=== PATIENT | male | born 1940 ===

== ENCOUNTER 2021-05-10 15:15 | Inpatient (IN) | payer OTHER ==
[~2021-05-10] VITALS: Ht 177.8 cm; Wt 81.8 kg
[2021-05-10] MEDS ORDERED: HYDROcodone-ACET 5/325MG TAB PO ONE (22:45)
[2021-05-10 22:57] LABS: Basophils # (auto) 0.1 10 ^3/uL (0-0.2); Eosinophils # (auto) 0.1 10 ^3/uL (0-0.8); Hematocrit 35.1 % (41.0-53.0); Red Blood Cells 4.76 10^6/uL (4.5-5.90); Red Cell Distribution Width 15.4 % (11.8-14.3)
[2021-05-10 22:59] LABS: Basophils % (auto) 1.1 % (0.0-2.0); Eosinophils % (auto) 1.1 % (0.0-7.0); Hemoglobin 11.4 g/dL (13.5-17.5); Lymphocytes # (auto) 2.1 10 ^3/uL (0.4-5.4); Lymphocytes % (auto) 21.4 % (10.0-50.0); Mean Corpuscular Hgb Conc. 32.6 g/dL (32.0-36.0); Mean Corpuscular Volume 73.7 fL (80.0-100.0); Monocytes # (auto) 0.8 10 ^3/uL (0-1.3); Monocytes % (auto) 7.9 % (0.0-12.0); Neutrophils # (auto) 6.8 10 ^3/uL (1.6-8.6); Neutrophils % (auto) 68.5 % (37.0-80.0); White Blood Cell 9.9 10^3/uL (4.4-10.8)
[2021-05-10 23:16] LABS: Calcium 8.9 mg/dL (8.5-10.1); Potassium 4.4 mmol/L (3.5-5.1)
[2021-05-11] MEDS ORDERED: DEXTROSE (50%) 50ML SYRG IV PRN (00:30)
[2021-05-11] MEDS ORDERED: HYDROcodone-ACET 5/325MG TAB PO PRN (00:30)
[2021-05-11] MEDS ORDERED: ACETAMINOPHEN 325 MG TAB PO PRN (00:30)
[2021-05-11] MEDS ORDERED: ONDANSETRON HCL 4 MG/2 ML VIAL IV PRN (00:30)
[2021-05-11] MEDS: InsuLIN REG 1unit/0.01ml Soln (100units/ml) SC SCH ×4 (06:29→22:00)
[2021-05-11] MEDS: ACCU-CHEK COMFORT CURVE STRIP VI SCH ×4 (06:30→22:00)
[2021-05-11] MEDS: GABAPENTIN 300 MG CAP PO SCH ×2 (14:33→23:06)
[2021-05-11] MEDS ORDERED: TAMS0.4C36 PO (14:43)
[2021-05-11] MEDS ORDERED: GABA400C11 PO (14:43)
[2021-05-11] MEDS ORDERED: METF-372 PO (14:43)
[2021-05-11] MEDS ORDERED: [UNRECOGNIZED DRUG - CODE] PO (14:47)
[2021-05-11] MEDS ORDERED: ESCI-34 PO (14:47)
[2021-05-11 17:00] LABS: Mean Corpuscular Hemoglobin 23.7 pg (28.0-32.0)
[2021-05-11 17:01] LABS: Basophils # (auto) 0.1 10 ^3/uL (0-0.2); Basophils % (auto) 0.9 % (0.0-2.0); Eosinophils # (auto) 0 10 ^3/uL (0-0.8); Eosinophils % (auto) 0.5 % (0.0-7.0); Hematocrit 36.6 % (41.0-53.0); Hemoglobin 11.9 g/dL (13.5-17.5); Lymphocytes % (auto) 20.9 % (10.0-50.0); Mean Corpuscular Hgb Conc. 32.4 g/dL (32.0-36.0); Mean Corpuscular Volume 73.2 fL (80.0-100.0); Monocytes # (auto) 0.9 10 ^3/uL (0-1.3); Monocytes % (auto) 8.7 % (0.0-12.0); Neutrophils # (auto) 6.7 10 ^3/uL (1.6-8.6); White Blood Cell 9.8 10^3/uL (4.4-10.8)
[2021-05-11] MEDS: metFORMIN HYDROCHLORIDE 500 MG TAB PO SCH (19:49)
[2021-05-11] MEDS: ALPRAZolam 0.25 MG TAB PO PRN (19:49)
[2021-05-12 01:37] VITALS: BP 139/71
[2021-05-12] MEDS: ALPRAZolam 0.25 MG TAB PO PRN (02:43)
[2021-05-12 03:04] LABS: Urine Bacteria FEW /hpf (None Seen); Urine Blood Negative /uL (Negative); Urine WBC 3 /hpf (0 - 3)
[2021-05-12 05:00] VITALS: BP 125/67
[2021-05-12] MEDS: GABAPENTIN 100 MG CAP PO SCH ×3 (06:12→22:00)
[2021-05-12] MEDS: ACCU-CHEK COMFORT CURVE STRIP VI SCH ×4 (06:37→22:00)
[2021-05-12] MEDS: InsuLIN REG 1unit/0.01ml Soln (100units/ml) SC SCH ×4 (06:37→22:00)
[2021-05-12 06:40] LABS: Basophils # (auto) 0.1 10 ^3/uL (0-0.2); Eosinophils # (auto) 0.1 10 ^3/uL (0-0.8); Hemoglobin 11.6 g/dL (13.5-17.5); Monocytes # (auto) 1.3 10 ^3/uL (0-1.3)
[2021-05-12 06:45] LABS: Basophils % (auto) 0.7 % (0.0-2.0); Eosinophils % (auto) 1.1 % (0.0-7.0); Hematocrit 34.2 % (41.0-53.0); Lymphocytes # (auto) 2.5 10 ^3/uL (0.4-5.4); Lymphocytes % (auto) 20.9 % (10.0-50.0); Mean Corpuscular Hemoglobin 24.8 pg (28.0-32.0); Mean Corpuscular Hgb Conc. 33.9 g/dL (32.0-36.0); Mean Corpuscular Volume 73.2 fL (80.0-100.0); Monocytes % (auto) 11.1 % (0.0-12.0); Neutrophils # (auto) 7.8 10 ^3/uL (1.6-8.6); Neutrophils % (auto) 66.2 % (37.0-80.0); Nucleated Red Blood Cells % 0.1 %; Red Blood Cells 4.67 10^6/uL (4.5-5.90); Red Cell Distribution Width 15.4 % (11.8-14.3); White Blood Cell 11.8 10^3/uL (4.4-10.8)
[2021-05-12 06:50] LABS: INR 1.01 (0.9-1.15); Partial Thromboplastin Time 26.2 sec (23.6-33.0)
[2021-05-12 06:59] LABS: Albumin 3.4 g/dL (3.4-5.0); Calcium 8.9 mg/dL (8.5-10.1); Potassium 3.8 mmol/L (3.5-5.1)
[2021-05-12 07:04] LABS: Bilirubin, Total 0.7 mg/dL (0.2-1.0)
[2021-05-12] MEDS: metFORMIN HYDROCHLORIDE 500 MG TAB PO SCH ×2 (08:09→17:36)
[2021-05-12 09:00] VITALS: BP 127/68
[2021-05-12] MEDS: ENOXAPARIN SOD 40 MG/0.4 ML SYRINGE SC SCH (10:00)
[2021-05-12 13:00] VITALS: BP 124/65
[2021-05-12 16:36] VITALS: BP 121/72
[2021-05-12 22:00] VITALS: BP 130/57
[2021-05-13 05:00] VITALS: BP 127/71
[2021-05-13] MEDS: ACCU-CHEK COMFORT CURVE STRIP VI SCH ×4 (05:10→22:20)
[2021-05-13] MEDS: GABAPENTIN 100 MG CAP PO SCH ×3 (05:10→22:20)
[2021-05-13] MEDS: InsuLIN REG 1unit/0.01ml Soln (100units/ml) SC SCH ×4 (05:10→22:21)
[2021-05-13 09:00] VITALS: BP 122/72
[2021-05-13] MEDS: metFORMIN HYDROCHLORIDE 500 MG TAB PO SCH ×2 (10:15→17:16)
[2021-05-13] MEDS: MORPHINE SULFATE 4 MG/ML SYR/VIAL IV PRN (10:16)
[2021-05-13] MEDS: ENOXAPARIN SOD 40 MG/0.4 ML SYRINGE SC SCH (10:16)
[2021-05-13 13:00] VITALS: BP 125/67
[2021-05-13] MEDS ORDERED: PANTOPRAZOLE 40 MG TAB PO ONE (14:00)
[2021-05-13 17:00] VITALS: BP 130/74
[2021-05-13 22:00] VITALS: BP 125/68
[2021-05-14 05:00] VITALS: BP 128/68
[2021-05-14] MEDS: GABAPENTIN 100 MG CAP PO SCH ×3 (06:00→21:24)
[2021-05-14] MEDS: ACCU-CHEK COMFORT CURVE STRIP VI SCH ×4 (06:00→21:25)
[2021-05-14] MEDS: InsuLIN REG 1unit/0.01ml Soln (100units/ml) SC SCH ×4 (06:00→21:32)
[2021-05-14] MEDS: metFORMIN HYDROCHLORIDE 500 MG TAB PO SCH ×2 (08:00→18:00)
[2021-05-14 09:00] VITALS: BP 119/66
[2021-05-14] MEDS: PANTOPRAZOLE 40 MG TAB PO SCH (10:00)
[2021-05-14] MEDS: MORPHINE SULFATE 4 MG/ML SYR/VIAL IV PRN (10:59)
[2021-05-14 13:00] VITALS: BP 125/71
[2021-05-14] MEDS ORDERED: ONDANSETRON HCL 4 MG/2 ML VIAL ONE (17:10)
[2021-05-14] MEDS ORDERED: LIDOCAINE 2% (LOCAL ANESTH.) PF 5ml SDV ONE (17:10)
[2021-05-14] MEDS ORDERED: PROPOFOL 10 MG/ML 20 ML IV ONE (17:10)
[2021-05-14] MEDS ORDERED: GLYCOPYRROLATE 0.2 MG/ML 1ML VIAL ONE (17:10)
[2021-05-14] MEDS ORDERED: MIDAZOLAM HCL 2MG/2ML 2ml VIAL (1mg/ml) ONE (17:10)
[2021-05-14] MEDS ORDERED: fentaNYL CITRATE 100 MCG/2 ML VL ONE (17:10)
[2021-05-14] MEDS ORDERED: ePHEDrine SULFATE 50 MG/ML AMP ONE (17:10)
[2021-05-14] MEDS ORDERED: ceFAZolin 1GM/50ML 100 ML IV ONE (17:46)
[2021-05-14] MEDS ORDERED: EPINEPHrine HCL 1 MG/1 ML AMP ONE (17:59)
[2021-05-14] MEDS ORDERED: TRANEXAMIC ACID 0 ML ONE (17:59)
[2021-05-14] MEDS ORDERED: VANCOMYCIN HCL 1000 MG VL ONE (18:03)
[2021-05-14] MEDS ORDERED: KETAMINE HCL 10 ML ONE (18:28)
[2021-05-14] MEDS ORDERED: HYDROcodone-ACET 10/325MG TAB PO PRN (19:45)
[2021-05-14] MEDS ORDERED: ACCU-CHEK COMFORT CURVE STRIP VI ONE (20:15)
[2021-05-14] MEDS ORDERED: ONDANSETRON HCL 4 MG/2 ML VIAL IV PRN (20:15)
[2021-05-14] MEDS ORDERED: HYDROmorphone HCL 2 MG/ML VL IV PRN (20:15)
[2021-05-14 22:00] VITALS: BP 127/65
[2021-05-14] MEDS: HYDROmorphone HCL 2 MG/ML VL IV PRN (22:52)
[2021-05-15] MEDS: HYDROmorphone HCL 2 MG/ML VL IV PRN ×3 (04:35→21:48)
[2021-05-15 05:00] VITALS: BP 138/69
[2021-05-15] MEDS: GABAPENTIN 100 MG CAP PO SCH ×3 (05:54→21:47)
[2021-05-15] MEDS: ACCU-CHEK COMFORT CURVE STRIP VI SCH ×4 (06:00→21:48)
[2021-05-15] MEDS: InsuLIN REG 1unit/0.01ml Soln (100units/ml) SC SCH ×4 (06:01→22:04)
[2021-05-15 07:02] LABS: Basophils # (auto) 0.1 10 ^3/uL (0-0.2); Basophils % (auto) 0.7 % (0.0-2.0); Eosinophils # (auto) 0.2 10 ^3/uL (0-0.8); Eosinophils % (auto) 1.5 % (0.0-7.0); Hematocrit 32.3 % (41.0-53.0); Hemoglobin 10.9 g/dL (13.5-17.5); Lymphocytes # (auto) 1.5 10 ^3/uL (0.4-5.4); Lymphocytes % (auto) 14.1 % (10.0-50.0); Mean Corpuscular Hemoglobin 24.6 pg (28.0-32.0); Mean Corpuscular Hgb Conc. 33.6 g/dL (32.0-36.0); Mean Corpuscular Volume 73.1 fL (80.0-100.0); Monocytes # (auto) 1.1 10 ^3/uL (0-1.3); Monocytes % (auto) 10.3 % (0.0-12.0); Neutrophils % (auto) 73.4 % (37.0-80.0); Red Blood Cells 4.42 10^6/uL (4.5-5.90); Red Cell Distribution Width 14.7 % (11.8-14.3); White Blood Cell 10.9 10^3/uL (4.4-10.8)
[2021-05-15 07:08] LABS: BUN/Creatinine Ratio 21.2; Calcium 8.9 mg/dL (8.5-10.1)
[2021-05-15] MEDS: metFORMIN HYDROCHLORIDE 500 MG TAB PO SCH ×2 (07:53→17:56)
[2021-05-15] MEDS: ENOXAPARIN SOD 40 MG/0.4 ML SYRINGE SC SCH (07:53)
[2021-05-15] MEDS: PANTOPRAZOLE 40 MG TAB PO SCH (07:53)
[2021-05-15 09:00] VITALS: BP 136/74
[2021-05-15 16:48] VITALS: BP 126/62
[2021-05-15 22:00] VITALS: BP 128/65
[2021-05-16 05:00] VITALS: BP 117/66
[2021-05-16] MEDS: GABAPENTIN 100 MG CAP PO SCH ×2 (06:48→14:57)
[2021-05-16] MEDS: InsuLIN REG 1unit/0.01ml Soln (100units/ml) SC SCH ×2 (06:49→12:00)
[2021-05-16] MEDS: ACCU-CHEK COMFORT CURVE STRIP VI SCH ×2 (06:49→14:25)
[2021-05-16] MEDS: PANTOPRAZOLE 40 MG TAB PO SCH (08:44)
[2021-05-16] MEDS: metFORMIN HYDROCHLORIDE 500 MG TAB PO SCH (08:44)
[2021-05-16] MEDS: ENOXAPARIN SOD 40 MG/0.4 ML SYRINGE SC SCH (08:44)
[2021-05-16 09:00] VITALS: BP 133/68
[2021-05-16] MEDS: HYDROmorphone HCL 2 MG/ML VL IV PRN (10:21)
[2021-05-16 12:30] VITALS: BP 110/62
[2021-05-16 14:32] VITALS: BP 110/62
== END 2021-05-16 15:34 | disposition home health service (06) | DRG 517 ==
LOC: ER 15:15 → OVERFLOW 05-11 00:26 → WEST WING 05-11 22:20 → TELE-WESTW 05-11 22:22 → WEST WING 05-11 23:16
PROVIDERS: ADMIT Nurse Practitioner; ATTEND Internal Medicine Geriatric Medicine
PROC: 0QSD04Z Reposition Right Patella with Internal Fixation Device, Open Approach (ICD-10-PCS; principal; 2021-05-14 18:10)
DX: S82.041A Displaced comminuted fracture of right patella, initial encounter for closed fracture (principal); E11.9 Type 2 diabetes mellitus without complications; I10 Essential (primary) hypertension; G62.9 Polyneuropathy, unspecified; S60.812A Abrasion of left wrist, initial encounter; Z20.822 Contact with and (suspected) exposure to COVID-19; Z83.3 Family history of diabetes mellitus
CPT/HCPCS: 36415; 71045; 73110; 73560; 73562; 76000; 80048; 80053; 81001; 82962; 83036; 85025; 85610; 85730; 86850; 86900; 86901; 87426; 93005; 93306; 97116; 97163; 97530; G0378; J0171; J0690; J1815; J2001; J2250; J2405; J2704